=== PATIENT | female | born 1980 | race Caucasian/White ===

== ENCOUNTER 2023-10-07 00:06 | Emergency (ER) | payer OTHER ==
[~2023-10-07] VITALS: Ht 158.8 cm; Wt 86.2 kg
[2023-10-07 00:08] VITALS: PULSE 76; RESP 18; TEMP 98.3
[2023-10-07] MEDS ORDERED: ACETAMINOPHEN-1 EAC4 PO (00:38)
[2023-10-07 00:40] VITALS: BP 139/94; PULSE 76; RESP 18; TEMP 98.3; O2SAT 100
== END 2023-10-07 00:40 | disposition home or self-care (01) ==
LOC: FSED 00:09
DX: N75.0 Cyst of Bartholin's gland (principal)
CPT/HCPCS: 56420; 99282